=== PATIENT | female | born 1975 | race Caucasian/White ===

== ENCOUNTER 2019-10-09 07:54 | Day surgery (SDC) | payer OTHER ==
[~2019-10-09 07:54] MED LIST: HYDROmorphone 0.5 MG/0.5 ML Syringe ONE; Propofol 200 MG/20 ML SDV ONE; fentaNYL 250 MCG/5 ML SDV ONE
[2019-10-09] MEDS ORDERED: Sodium Chloride 0.9% 10 ML Syringe FLUSH PRN (08:00)
[2019-10-09] MEDS ORDERED: Lactated Ringers 1,000 ML IV SCH (08:00)
[2019-10-09] MEDS ORDERED: Dexamethasone 10 MG/ML SDV ONE (09:15)
[2019-10-09] MEDS ORDERED: Rocuronium 100 MG/10 ML MDV ONE (09:15)
[2019-10-09] MEDS ORDERED: fentaNYL 100 MCG/2 ML SDV ONE ×2 (09:15→10:07)
[2019-10-09] MEDS ORDERED: Ketorolac 30 MG/ML SDV ONE (09:15)
[2019-10-09] MEDS ORDERED: Neostigmine Methylsulfate 10 MG/10 ML MDV ONE (09:15)
[2019-10-09] MEDS ORDERED: HYDROmorphone 0.5 MG/0.5 ML Syringe ONE ×3 (09:15→09:45)
[2019-10-09] MEDS ORDERED: Propofol 200 MG/20 ML SDV ONE (09:15)
[2019-10-09] MEDS ORDERED: Glycopyrrolate 0.2 MG/ML SDV ONE (09:15)
[2019-10-09] MEDS ORDERED: Succinylcholine 200 MG/10 ML MDV ONE (09:15)
[2019-10-09] MEDS ORDERED: Ondansetron 4 MG/2 ML SDV ONE (09:15)
[2019-10-09] MEDS ORDERED: Lidocaine 2% 100 MG/5 ML Syringe ONE (09:15)
[2019-10-09] MEDS ORDERED: fentaNYL 250 MCG/5 ML SDV ONE (09:15)
--- NOTE | 2019-10-09 11:05 | PCM.HPR ---
H & P Addendum review - H & P Addendum Review Date of Original H & P: 09/25/19 Date Reviewed: 10/09/19 (n) Time Reviewed: 09:05 Patient was Examined: No Changes
[2019-10-09] MEDS ORDERED: Morphine 2 MG/ML Syringe IVPUSH PRN (11:06)
--- NOTE | 2019-10-09 11:09 | PCM.OPNOTE ---
- General Post-Op/Procedure Note Date of Surgery/Procedure: 10/09/19 Operative Procedure(s): Lap Marsha Findings: Adhesions Pre Op Diagnosis: Symptomatic Cholelithiasis Post-Op Diagnosis: Same with. Adhesions Anesthesia Technique: General ET Tube Primary Surgeon: Cristóbal Powell EBL in mLs: 10 Complications: None Condition: Good
[2019-10-09] MEDS ORDERED: Ondansetron 4 MG Tab.DIS PO ONE (12:18)
--- NOTE | 2019-10-09 14:21 | OR ---
Date of Procedure: 10/09/2019 PREOPERATIVE DIAGNOSIS: Symptomatic cholelithiasis. POSTOPERATIVE DIAGNOSIS: Symptomatic cholelithiasis with chronic cholecystitis. PROCEDURE: Laparoscopic cholecystectomy with adhesiolysis. ANESTHESIA: General. DESCRIPTION OF PROCEDURE: The patient was brought to the operating room where general endotracheal anesthesia was administered. Abdomen was prepped with ChloraPrep and draped sterilely. An infraumbilical incision was made and extended into the peritoneal cavity without difficulty. The Marija cannula later was introduced and pneumoperitoneum obtained. Remaining three 5 mm ports were placed in the usual positions. The patient was placed in reverse Trendelenburg position and rotated to the left. The gallbladder was grasped and two-thirds of the undersurface was covered with fairly dense omental adhesions that were taken down with blunt dissection and electrocautery to expose the gallbladder. This took approximately 20 minutes to be able to clearly identify the gallbladder. Once this was done, the cystic duct and cystic artery were dissected free with some difficulty because of much fibrosis. Cystic artery was clearly dissected free and a large cystic duct node was present along this. This was doubly clipped proximally and once distally and then transected. This aided in visualization of the base of the gallbladder and cystic duct. Further careful dissection the structures and I was able to clear the lower third of the gallbladder and cystic duct and all anatomy was clearly identified. The cystic duct was milked back into the gallbladder, then doubly clipped proximally and once distally and then transected. The gallbladder was then removed from the bed of the liver using electrocautery. A branch of the cystic artery was clipped posteriorly and cauterized distally. Once the gallbladder was completely freed up, it was brought out through the umbilical port site. Right upper quadrant was thoroughly irrigated and inspected and return was clear and hemostasis assured. All clips were in place. The ports were removed under direct vision and remained hemostatic. Umbilical fascia was closed with figure- of-eight 0 Vicryl. Skin was closed with 4-0 Vicryl subcuticular sutures. Benzoin and Steri-Strips were placed and Band-Aids applied. The patient tolerated the procedure well. Estimated blood loss was 10 mL. She returned to Postanesthesia in stable condition. THEODORA WALKER MD /[id number]
== END 2019-10-09 12:32 | disposition home or self-care (01) ==
LOC: LL.SDS 07:54
PROVIDERS: ATTEND Surgery
DX: K80.10 Calculus of gallbladder with chronic cholecystitis without obstruction (principal); K82.8 Other specified diseases of gallbladder; K21.9 Gastro-esophageal reflux disease without esophagitis; F17.210 Nicotine dependence, cigarettes, uncomplicated; Z88.1 Allergy status to other antibiotic agents; Z79.899 Other long term (current) drug therapy; Z98.84 Bariatric surgery status
CPT/HCPCS: 36415; 47562; 84703; A9270; J0330; J1100; J1170; J1885; J2001; J2405; J2704; J2710; J3010; J3490; J7120

== ENCOUNTER 2019-11-20 08:28 | Day surgery (SDC) | payer OTHER ==
[2019-11-20] MEDS ORDERED: Midazolam 1 MG/ML 2 ML SDV ONE ×3 (08:44→09:45)
[2019-11-20] MEDS ORDERED: Sodium Chloride 0.9% 10 ML Syringe FLUSH PRN (08:45)
[2019-11-20] MEDS ORDERED: Propofol 200 MG/20 ML SDV ONE ×2 (08:45→09:45)
[2019-11-20] MEDS: Lactated Ringers 1,000 ML IV SCH (09:32)
--- NOTE | 2019-11-20 09:33 | PCM.HPR ---
H & P Addendum review - H & P Addendum Review Date of Original H & P: 11/13/19 Date Reviewed: 11/20/19 Time Reviewed: 09:33 Patient was Examined: No Changes
--- NOTE | 2019-11-20 10:06 | PCM.OPNOTE ---
- General Post-Op/Procedure Note Date of Surgery/Procedure: 11/20/19 Operative Procedure(s): EGJ with Bx Findings: Anastamosis Ulcer Pre Op Diagnosis: Epigastric Pain Post-Op Diagnosis: Same Anesthesia Technique: MAC Primary Surgeon: Cristóbal Powell Anesthesia Provider: Marialuisa Alcantara Pathology: Stomach Bx EBL in mLs: 0 Complications: None Condition: Good
--- NOTE | 2019-11-21 09:42 | OR ---
Date of Procedure: 11/20/2019 PREOPERATIVE DIAGNOSIS: Epigastric abdominal pain. POSTOPERATIVE DIAGNOSIS: Gastric ulcer. PROCEDURE: Esophagogastroduodenoscopy with biopsy. ANESTHESIA: IV sedation. DESCRIPTION OF PROCEDURE: The patient was brought to the procedure room where she was placed on her left side and IV sedation administered. Oral bite block was placed and the upper endoscope advanced into the esophagus under direct vision without difficulty. Vocal cords were viewed and were normal. The scope was advanced into the stomach pouch and into the jejunal limb. I was able to intubate the jejunal limb for at least 10 cm, which was normal. At the gastrojejunostomy, there was an 8 mm ulcer with white base and no visible vessel and no evidence of recent bleeding. There was minimal surrounding inflammation. I did take 2 biopsies from the stomach pouch. Retroflexion reveals a normal squamocolumnar junction with no evidence of reflux esophagitis, strictures or erosions or other problems. Photographs were taken. There was 1 suture at the anastomotic line that is not causing any problems and was left. Air was removed and the scope withdrawn. The patient tolerated the procedure well and returned to recovery in stable condition. I will have her remain on her proton pump inhibitor and add Carafate for 4 weeks. THEODORA WALKER MD /[id number]
== END 2019-11-20 11:02 | disposition home or self-care (01) ==
LOC: LL.SDS 08:28
PROVIDERS: ATTEND Surgery
DX: K91.89 Other postprocedural complications and disorders of digestive system (principal); K25.9 Gastric ulcer, unspecified as acute or chronic, without hemorrhage or perforation; K21.9 Gastro-esophageal reflux disease without esophagitis; F17.210 Nicotine dependence, cigarettes, uncomplicated; Z79.899 Other long term (current) drug therapy; Z98.1 Arthrodesis status; Z90.49 Acquired absence of other specified parts of digestive tract; Z88.1 Allergy status to other antibiotic agents
CPT/HCPCS: 43239; J2250; J2704; J7120

== ENCOUNTER 2025-01-01 08:39 | Day surgery (SDC) | payer BC ==
[~2025-01-01 08:39] MED LIST changes: -HYDROmorphone 0.5 MG/0.5 ML Syringe ONE; +Midazolam 1 MG/ML 2 ML SDV ONE; +Sodium Chloride 0.9% 10 ML Syringe FLUSH PRN; -fentaNYL 250 MCG/5 ML SDV ONE
[2025-01-01] MEDS: Lactated Ringers 1,000 ML IV SCH (09:14)
== END 2025-01-01 10:45 | disposition home or self-care (01) ==
LOC: LL.SDS 08:39
PROVIDERS: ATTEND Surgery
DX: Z12.11 Encounter for screening for malignant neoplasm of colon (principal); K21.9 Gastro-esophageal reflux disease without esophagitis; F41.9 Anxiety disorder, unspecified; D64.9 Anemia, unspecified; E55.9 Vitamin D deficiency, unspecified; F17.210 Nicotine dependence, cigarettes, uncomplicated; Z79.899 Other long term (current) drug therapy
CPT/HCPCS: J2250; J2704; J7120